=== PATIENT | female | born 1980 | race Caucasian/White ===

== ENCOUNTER 2024-09-17 14:04 | Emergency (ER) | payer MEDICAID ==
[~2024-09-17] VITALS: Ht 172.7 cm; Wt 61.2 kg
[2024-09-17] MEDS ORDERED: LORA-259 PO (14:15)
[2024-09-17 15:14] LABS: *BILIRUBIN,URIN NEGATIVE (NEGATIVE); *CLARITY,URINE CLEAR (CLEAR); *COLOR,URINE YELLOW (YELLOW); *KETONES,URINE TRACE (NEGATIVE); *PROTEIN,URINE NEGATIVE (NEGATIVE); *UROBILINOGEN,URINE 0.2 E.U./dl (NORMAL); BASOPHILS % (AUTO) 0.5 % (0.0-2.0); EOSINOPHILS % (AUTO) 0.1 % (0.0-7.0); HEMATOCRIT 40.8 % (31.2-41.9); LEUKOCYTE ESTERASE ,URINE NEGATIVE (NEGATIVE); LYMPHOCYTES # (AUTO) 2.2 K/uL (0.8-4.8); LYMPHOCYTES % (AUTO) 25.1 % (20.5-51.5); MEAN CORPUSCULAR HEMOGLOBIN 31.4 uug (24.7-32.8); MEAN CORPUSCULAR HGB CONC 34 g/dL (32.3-35.6); MEAN CORPUSCULAR VOLUME 91.6 fL (75.5-95.3); MONOCYTES # (AUTO) 0.7 K/uL (0.1-1.30); MONOCYTES % (AUTO) 7.8 % (0.0-11.0); NEUTROPHILS # (AUTO) 5.9 K/uL (1.8-8.9); NEUTROPHILS % (AUTO) 66.5 % (38.5-71.5); NITRITE, URINE NEGATIVE (NEGATIVE); PH,URINE 6.5 (5.0-8.0); PLATELET COUNT (AUTO) 317 K/uL (179-408); RED BLOOD CELL COUNT(AUTO) 4.45 MIL/uL (3.63-4.92); RED CELL DISTRIBUTION WIDTH 14.2 % (12.3-17.7); UGLUCOSE NEGATIVE (NEGATIVE); WHITE BLOOD COUNT (AUTO) 8.9 K/uL (3.8-11.8)
[2024-09-17 15:15] LABS: DIFFERENTIAL COMMENT 1
[2024-09-17 15:16] LABS: *BLOOD, URINE TRACE (NEGATIVE)
[2024-09-17 15:20] LABS: CALCIUM 9.6 mg/dL (8.5-10.1); CREATININE 0.7 mg/dL (0.6-1.3); POTASSIUM 3.3 mmol/L (3.5-5.1); RBC,URINE 0-3 /HPF (0-3)
[2024-09-17 15:21] LABS: BACTERIA,URINE FEW /HPF (NONE SEEN); SQUAMOUS EPITHELIAL CELL,UR MODERATE /HPF (NONE SEEN); WBC,URINE 0-3 /HPF (0-3)
[2024-09-17 15:27] LABS: ALBUMIN 4.5 g/dL (3.4-5.0); BILIRUBIN,DIRECT 0.1 mg/dL (0.0-0.2); BILIRUBIN,TOTAL 0.5 mg/dL (0.2-1.0)
[2024-09-17] MEDS ORDERED: DIAZEPAM 5 MG TABLET ONE (15:38)
[2024-09-17] MEDS: DIAZEPAM 2 MG TABLET PO ONE (15:40)
[2024-09-17] MEDS ORDERED: POTASSIUM BICARBONATE/CIT AC 25 MEQ TABLET.EFF ONE (15:53)
[2024-09-17] MEDS: POTASSIUM BICARBONATE/CIT AC 25 MEQ TABLET.EFF PO ONE (15:58)
[2024-09-17 16:43] LABS: *AMPHETAMINE, URINE NEGATIVE (NEGATIVE); *BARBITURATE, URINE NEGATIVE (NEGATIVE); *BENZODIAZEPINE, URINE NEGATIVE (NEGATIVE); *CANNABINOID, URINE NEGATIVE (NEGATIVE); *COCCAINE, URINE NEGATIVE (NEGATIVE); *OPIATE, URINE NEGATIVE (NEGATIVE); *PHENCYCLIDINE SCREEN,URINE NEGATIVE (NEGATIVE); FENTANYL, URINE NEGATIVE (NEGATIVE)
[2024-09-17] MEDS ORDERED: KETOROLAC TROMETHAMINE 30 MG INJ ONE (17:32)
[2024-09-17] MEDS ORDERED: diphenhydrAMINE 50 MG/1 ML VIAL ONE (17:32)
[2024-09-17] MEDS: diphenhydrAMINE 50 MG/1 ML VIAL IV ONE (17:40)
[2024-09-17] MEDS: KETOROLAC TROMETHAMINE 30 MG INJ IVP ONE (17:41)
[2024-09-17] MEDS ORDERED: LORAZEPAM 1 MG TABLET ONE (18:59)
[2024-09-17] MEDS: LORAZEPAM 0.5 MG TABLET PO ONE (19:00)
[2024-09-17 21:59] LABS: *URINE HCG, QUAL NEGATIVE (NEGATIVE)
[2024-09-17] MEDS ORDERED: LORAZEPAM 2 MG/1 ML VIAL ONE (22:37)
[2024-09-17] MEDS: LORAZEPAM 2 MG/1 ML VIAL IV ONE (22:40)
[2024-09-17 22:48] VITALS: O2SAT 99
[2024-09-18] MEDS ORDERED: NICOTINE 14 MG/24HR PATCH TD SCH (09:00)
== END 2024-09-18 01:45 ==
LOC: ER 14:04
DX: F43.10 Post-traumatic stress disorder, unspecified (principal); F41.9 Anxiety disorder, unspecified; R10.9 Unspecified abdominal pain; R51.9 Headache, unspecified; Z79.899 Other long term (current) drug therapy; Z20.822 Contact with and (suspected) exposure to COVID-19
CPT/HCPCS: 99285; 96374; 70450; 96375; 87426; 80076; 80048; 82607; 84703; 83735; 85025; 36415; 74018; 80307; 81001; J1885; J1200; J2060; A4606; A4663